=== PATIENT | female | born 2000 | race Caucasian/White ===

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

== ENCOUNTER → 2022-04-19 | Outpatient (CLI) | payer OTHER | LOC: COL.RAD 07:04 | DX: R55 Syncope and collapse (principal); R51.9 Headache, unspecified | CPT/HCPCS: A9575 ==